=== PATIENT | female | born 1945 | race African-American/Black ===

== ENCOUNTER 2021-10-25 09:20 | Emergency (ER) | payer OTHER ==
[2021-10-25 09:36] VITALS: BMI 25.0
[2021-10-25] MEDS ORDERED: SODIUM CHLORIDE 0.9% 500 ML INFUS.BAG IV ONE (10:31)
[2021-10-25 11:19] LABS: BASO % 0.1 % (0-2.0); HEMATOCRIT 33.2 % (32.4-45.2); LYMPH % 9.6 % (8-40); MCH 20.5 pg (25.7-33.7); MCHC 30.2 g/dl (32.0-36.0); MEAN CELL VOLUME 67.8 fl (80-96); MEAN PLT VOLUME 7.4 fl (7.5-11.1); MONO % 3.6 % (3.8-10.2); NEUT % 86.7 % (42.8-82.8); PLATELET COUNT 470 10^3/uL (134-434); RDW 21.2 % (11.6-15.6); WHITE BLOOD COUNT 9.8 K/mm3 (4.0-10.0)
[2021-10-25 11:39] LABS: CALCIUM 9.5 mg/dL (8.5-10.1)
[2021-10-25 11:40] LABS: BLOOD UREA NITROGEN 18.2 mg/dL (7-18); MAGNESIUM 2.4 mg/dL (1.8-2.4)
[2021-10-25 11:43] LABS: CREATININE 0.8 mg/dL (0.55-1.3); PHOSPHOROUS 2.8 mg/dL (2.5-4.9)
[2021-10-25 11:44] LABS: BILIRUBIN,TOTAL 0.3 mg/dL (0.2-1)
[2021-10-25 11:50] LABS: EPI CELLS 21 /uL (0-25.1); HYALINE CASTS 1 /uL (0-3.1); URINE APPEARANCE CLEAR; URINE BACTERIA >9,000 /uL (0-1359); URINE BILIRUBIN NEGATIVE (NEGATIVE); URINE COLOR YELLOW; URINE GLUCOSE (UA) NEGATIVE (NEGATIVE); URINE KETONE NEGATIVE (NEGATIVE); URINE LEUK ESTERASE 1+ (NEGATIVE); URINE NITRITE POSITIVE (NEGATIVE); URINE PROTEIN 1+ (NEGATIVE); URINE RBC 40 /uL (0-23.9); URINE UROBILINOGEN 0.2 mg/dL (0.2-1.0); URINE WBC 35 /uL (0-25.8)
[2021-10-25] MEDS ORDERED: CEFTRIAXONE 1 GM in DEXTROSE 5%-WATER - 50 ML IVPB ONE (11:52)
[2021-10-25] MEDS ORDERED: CEFTRIAXONE 1 GM/50 ML BAG ONE (12:02)
[2021-10-25 12:19] LABS: ANISOCYTOSIS 2+; MACROCYTOSIS 0; OVALOCYTE 2+; TARGET CELLS 2+
[2021-10-25 13:53] VITALS: BP 132/95; PULSE 84; TEMP 97.8
== END 2021-10-25 13:53 | disposition home or self-care (01) ==
LOC: JER 09:20
DX: N39.0 Urinary tract infection, site not specified (principal)
CPT/HCPCS: 36415; 80053; 81003; 82272; 83735; 84100; 84484; 85025; 87086; 87186; 93005; 93010; 99284-25; C9803-CS; U0003; U0005